=== PATIENT | female | born 1935 | race Hispanic/Latino ===

== ENCOUNTER 2017-06-27 13:57 | Outpatient (CLI) | payer MEDICARE, OTHER ==
--- NOTE | 2017-06-27 15:44 | Ultrasound Report ---
BILATERAL DIGITAL DIAGNOSTIC MAMMOGRAM with CAD and LEFT BREAST ULTRASOUND: 06/27/17 CLINICAL: Recent left pleural effusion and abnormal chest CT. COMPARISON:05/01/15 FINDINGS: The breasts are heterogeneously dense, which may obscure small masses.No mass, architectural distortion or suspicious calcifications.. Ultrasound of the left breast (including all four quadrants and the retroareolar area) was performed and demonstrated no mass or shadowing. A benign cyst at 7 o'clock near the areola measures 5 x 3 x 1 mm. A benign cyst at 12 o'clock measures 3 mm. Ultrasound of the left axilla demonstrated an abnormal lymph node measuring 4.0 x 3.2 x 1.4 cm. It has no central fat and more than one half of the lymph node has abnormal architecture. IMPRESSION: A suspicious 4 cm left axillary lymph node but no suspicious finding in the left breast. BI-RADS CATEGORY: 4--Suspicious RECOMMENDATION: Ultrasound guided needle biopsy of the left axillary lymph node. I discussed the findings and the recommendation for needle biopsy of the left axillary lymph node with the patient at the time of the examination. ACR BI-RADS MAMMOGRAPHIC CODES: 0 = Needs additional imaging evaluation; 1 = Negative; 2 = Benign; 3 = Probably benign; 4 = Suspicious; 5 = Malignant; 6 = Known biopsy-proven malignancy COMMENT: 1. Dense breast tissue, i.e., adenosis, fibrocystic changes, etc., may obscure an underlying neoplasm. 2. Approximately 10% of cancers are not detected with mammography. 3. A negative mammography report should not delay biopsy if a clinically suspicious mass is present. COMMENT: Patient follow-up letters are generated by our [employer] application.
== END 2017-06-27 13:58 | disposition home or self-care (01) ==
LOC: SPVWC 13:57
PROVIDERS: ATTEND Family Medicine
DX: N63.20 Unspecified lump in the left breast, unspecified quadrant (principal); R92.8 Other abnormal and inconclusive findings on diagnostic imaging of breast
CPT/HCPCS: 77066

== ENCOUNTER 2017-07-04 09:39 | Outpatient (CLI) | payer MEDICARE, OTHER ==
--- NOTE | 2017-07-04 13:47 | Ultrasound Report ---
ULTRASOUND GUIDED NEEDLE CORE BIOPSY OF A LEFT AXILLARY LYMPH NODE WITH CLIP PLACEMENT : 07/04/17 09:39:00 CLINICAL: A single enlarged left axillary lymph node and history of recent left pleural effusion. COMPARISON :06/27/17 FINDINGS: The procedure was explained to the patient and informed consent was obtained. Ultrasound demonstrated the suspicious lymph node. The skin in the axilla was prepped with Betadine and anesthetized with 1% lidocaine. Ultrasound guided needle core biopsy of the enlarged lymph node was performed through a small dermatotomy using 2% lidocaine with epinephrine for deep anesthesia and a 18-gauge Achieve biopsy device. Two cores were obtained and placed in cell medium for flow cytometric analysis and two cores were placed in formalin for histologic analysis. A clip was deployed within the lymph node. Hemostasis was achieved with minimal pressure and a sterile dressing was applied. The patient tolerated the procedure well and there were no apparent complications. She was discharged in good condition and was given instructions for wound care and followup. IMPRESSION: Uncomplicated ultrasound-guided needle core biopsy of a left axillary lymph node with clip placement.
== END 2017-07-04 09:40 | disposition home or self-care (01) ==
LOC: SPVWC 09:39
PROVIDERS: ATTEND Family Medicine
DX: R59.9 Enlarged lymph nodes, unspecified (principal)
CPT/HCPCS: 38505; 88305; 88312

== ENCOUNTER 2018-08-17 08:44 | Outpatient (CLI) | payer MEDICARE ==
--- NOTE | 2018-08-17 11:07 | Mammography Report ---
BILATERAL DIGITAL SCREENING MAMMOGRAM with CAD: 08/17/18 08:44:00 CLINICAL: Routine screening. COMPARISON:06/27/17 and 05/01/15 FINDINGS: The breasts are heterogeneously dense, which may obscure small masses. A left inner asymmetry on the CC view requires additional imaging.No architectural distortion or suspicious calcifications.The right breast is negative. IMPRESSION: Left asymmetry requiring further workup. BI-RADS CATEGORY: 0 -- Additional Imaging Evaluation Required RECOMMENDATION: Recall for left lateralmedial and spot compression CC views and left breast ultrasound if needed. ACR BI-RADS MAMMOGRAPHIC CODES: 0 = Needs additional imaging evaluation; 1 = Negative; 2 = Benign; 3 = Probably benign; 4 = Suspicious; 5 = Malignant; 6 = Known biopsy-proven malignancy COMMENT: 1. Dense breast tissue, i.e., adenosis, fibrocystic changes, etc., may obscure an underlying neoplasm. 2. Approximately 10% of cancers are not detected with mammography. 3. A negative mammography report should not delay biopsy if a clinically suspicious mass is present. COMMENT: Patient follow-up letters are generated via our [employer] application.
== END 2018-08-17 08:45 | disposition home or self-care (01) ==
LOC: SPVWC 08:44
PROVIDERS: ATTEND Family Medicine
DX: Z12.31 Encounter for screening mammogram for malignant neoplasm of breast (principal)
CPT/HCPCS: 77067

== ENCOUNTER 2018-09-01 09:48 | Outpatient (CLI) | payer MEDICARE ==
--- NOTE | 2018-09-01 11:33 | Mammography Report ---
LEFT DIGITAL DIAGNOSTIC MAMMOGRAM and LEFT BREAST ULTRASOUND: 09/01/18 09:48:00 CLINICAL: Recalled for asymmetry. COMPARISON:08/17/18 screening FINDINGS: An irregular inner asymmetry persists on the spot magnification CC view. It is not identified on the lateral view. Ultrasound of the left breast (including all four quadrants and the retroareolar area) was performed. An irregular solid heterogeneous hypoechoic superficial mass is identified at 9 o'clock 6 cm from the nipple. It measures 5 x 3 x 5 mm and correlates with the mammographic density. It has central blood flow by color Doppler and demonstrates mild shadowing. No other mass of the left breast. Ultrasound of the left axilla demonstrated several enlarged lymph nodes with abnormal morphology as seen on prior imaging. The largest measures 2.1 x 1.6 x 1.2 cm. She had a left axillary lymph node biopsy on 07/04/17 and the pathology revealed benign granulomatous inflammation suggestive of sarcoidosis. IMPRESSION: 1. A suspicious 5 mm solid left breast mass at 9 o'clock 6 cm from the nipple. Recommend ultrasound-guided needle biopsy.2. Left axillary lymphadenopathy which has been proven to be benign by needle biopsy. BI-RADS CATEGORY: 4--Suspicious I discussed the findings and the recommendation for ultrasound guided needle core biopsy of the left breast with the patient at the time of the examination. COMMENT: 1. Dense breast tissue, i.e., adenosis, fibrocystic changes, etc., may obscure an underlying neoplasm. 2. Approximately 10% of cancers are not detected with mammography. 3. A negative mammography report should not delay biopsy if a clinically suspicious mass is present. COMMENT: Patient follow-up letters are generated via our [employer] application.
== END 2018-09-01 09:49 | disposition home or self-care (01) ==
LOC: SPVWC 09:48
PROVIDERS: ATTEND Family Medicine
DX: R59.1 Generalized enlarged lymph nodes (principal)

== ENCOUNTER 2019-12-21 09:40 | Outpatient (CLI) | payer MEDICARE ==
--- NOTE | 2019-12-21 13:03 | Mammography Report ---
STEREOTACTIC NEEDLE BIOPSY WITH CLIP PLACEMENT RIGHT BREAST INDICATION: Right lower outer breast calcifications. COMPARISON: 11/29/2019, 11/04/2019. FINDINGS: The patient was placed prone on the stereotactic biopsy table. A timeout was called and the skin was cleansed with betadine. Using stereotactic guidance, sterile technique and 1% lidocaine for skin anesthesia and 2% lidocaine with epinephrine for deep anesthesia, 8-gauge Mammotome vacuum-assisted biopsy was performed from a l ateral approach. Samples were obtained around the clock face and maintenance representative calcifications were i dentified on a specimen radiograph. A localizer clip was placed at the biopsy site and the probe was removed. Hemostasis was achieved with pressure to the site and a sterile dressing was applied. A post procedure image demonstrated removal of at least some of the calcifications and concordant loc ation of the biopsy clip. The patient tolerated the procedure well and there were no apparent complic ations. She left the department in good condition with a cold pack applied to the biopsy site and she was given instructions for wound care and follow-up. IMPRESSION: Technically successful stereotactic biopsy of right lower outer breast calcifications. An addendum will be added to this report at a later date with pathology results. Signer Name: Marcus Sims MD Signed: 12/21/2019 12:59 PM Workstation Name: [id number]
--- NOTE | 2019-12-21 13:05 | Mammography Report ---
RIGHT DIAGNOSTIC MAMMOGRAM INDICATION: Status post right breast stereotactic biopsy COMPARISON: 11/29/2019, 11/04/2019. FINDINGS: Right CC and ML mammograms were obtained. These document location of the biopsy marker with in the right lower outer breast at site of previously noted calcifications. The calcifications are de creased in number. IMPRESSION: Post procedure mammogram documenting accurate location of biopsy marker within the right lower outer breast at site of recent stereotactic biopsy. Follow up recommendations: No recall. A "normal" or negative report should not discourage follow up or biopsy of a clinically significant f inding. A written summary of these findings will be mailed to the patient. FURTHER INFORMATION: According to the [employer], yearly mammograms are recommend ed starting at age 40 and continuing as long as a woman is in good health. Breast MRI is recommended for women with an approximately 20-25% or greater lifetime risk of breast cancer, including women wi th a strong family history of breast or ovarian cancer and women who have been treated for Hodgkin's disease. Signer Name: Marcus Sims MD Signed: 12/21/2019 1:01 PM Workstation Name: [id number]
== END 2019-12-21 09:41 | disposition home or self-care (01) ==
LOC: SPVWC 09:40
PROVIDERS: ATTEND Family Medicine
DX: R92.1 Mammographic calcification found on diagnostic imaging of breast (principal); D05.11 Intraductal carcinoma in situ of right breast; R92.0 Mammographic microcalcification found on diagnostic imaging of breast; Z17.0 Estrogen receptor positive status [ER+]
CPT/HCPCS: 19081; 77065; 88305; A4648

== ENCOUNTER 2020-02-07 06:08 | Day surgery (SDC) | payer MEDICARE ==
[~2020-02-07 06:08] MED LIST: ACETAMINOPHEN 500 MG TAB PO SCH; LACTATED RINGERS 1,000 ML IV SCH; MIDAZOLAM 2 MG/2 ML INJ IV NR; ceFAZolin/Water 2 GM/20 ML 2 GM/20 ML SYRINGE IV NR
[2020-02-07] MEDS ORDERED: BACTERIOSTATIC SODIUM CHLORIDE 0.9% 30 ML VIAL INFILTRATI ONE (06:28)
[2020-02-07] MEDS ORDERED: fentaNYL 100 MCG/2 ML INJ IV PRN (07:39)
--- NOTE | 2020-02-07 07:39 | Anesthesia Day of Surgery ---
Anesthesia Day of Surgery - Day of Surgery Patient Examined: Yes Patient H&P Reviewed: Yes Patient is NPO: Yes
--- NOTE | 2020-02-07 07:39 | Anesthesia Consultation ---
Anesthesia Consult and Med Hx Date of service: 02/07/20 - Airway Anesthetic Teeth Evaluation: Good ROM Head & Neck: Inadequate (restricted extension) Mental/Hyoid Distance: Adequate Mallampati Class: Class III Intubation Access Assessment: Possibly Difficult - Pulmonary Exam CTA: Yes - Cardiac Exam Cardiac Exam: RRR - Pre-Operative Health Status ASA Pre-Surgery Classification: ASA3 Proposed Anesthetic Plan: General Nerve Block: PECs - Pulmonary Hx Smoking: No Hx Respiratory Symptoms: No Hx Sleep Apnea: No - Cardiovascular System Hx Hypertension: No Hx Heart Attack/AMI: No Hx Percutaneous Transluminal Coronary Angioplasty (PTCA): No Hx Cardia Arrhythmia: No - Central Nervous System CVA: No - Endocrine Hx Renal Disease: No Hx Liver Disease: No Hx Insulin Dependent Diabetes: No Hx Non-Insulin Dependent Diabetes: No Hx Thyroid Disease: No - Other Systems Hx Cancer: Yes (breast ca) Hx Obesity: No - Additional Comments Anesthesia Medical History Comments: No hx anesthetic complications. Off ASA x1wk.
[2020-02-07] MEDS ORDERED: LIDOCAINE (1%) 10 MG/1 ML VIAL 20 ML MDV ONE (07:42)
[2020-02-07] MEDS ORDERED: METHYLENE BLUE 50 MG/10 ML AMP ONE (07:45)
[2020-02-07] MEDS ORDERED: SODIUM CHLORIDE P/F VIAL 10 ML 10 ML ONE (07:45)
[2020-02-07] MEDS ORDERED: LIDOCAINE MPF (2%) 20 MG/1 ML VIAL 5 ML ONE (07:54)
[2020-02-07] MEDS ORDERED: fentaNYL 100 MCG/2 ML INJ ONE (07:54)
[2020-02-07] MEDS ORDERED: ROCURONIUM 50 MG/5 ML INJ IV ONE (07:54)
[2020-02-07] MEDS ORDERED: ONDANSETRON 4 MG/2 ML INJ ONE (07:54)
[2020-02-07] MEDS ORDERED: propofoL 200 MG/20 ML VIAL IV ONE (07:54)
[2020-02-07] MEDS ORDERED: dexAMETHasone 4 MG/ML VIAL ONE (08:06)
[2020-02-07] MEDS ORDERED: BUPIVACAINE-EPINEPHRINE/PF 0.5%-1:200,000 (30 ML) VIAL INFILTRATI ONE (08:06)
[2020-02-07] MEDS ORDERED: METHYLENE BLUE 50 MG/10 ML AMP IRRIGATION ONE (10:09)
[2020-02-07] MEDS ORDERED: WATER FOR IRRIG STERILE 1,500 ML BOTTLE IR ONE (10:10)
[2020-02-07] MEDS ORDERED: SODIUM CHLORIDE 0.9% P/F 10 ML VIAL INFILTRATI ONE (10:10)
[2020-02-07] MEDS ORDERED: GLYCOPYRROLATE 0.4 MG/2 ML INJ ONE (10:59)
[2020-02-07] MEDS ORDERED: NEOSTIGMINE 10MG/10 ML INJ MDV ONE (10:59)
--- NOTE | 2020-02-07 11:11 | Operative Report ---
Operative Report Operative Report: Operative Report: February 07, 2020 Preoperative diagnosis: Right breast cancer of the central breast Postoperative diagnosis: Same Procedure: Right needle localization partial mastectomy of the central breast and SLNB Surgeon: Gabby Spicer MD Bilingual Case Manager: Renzo Guillory MD Anesthesia: General Findings: Right wire and clip present within radiograph specimen; x2 SLN Complications: None EBL: Minimal Disposition: PACU in good condition Indications for operative procedure: This is a 84 year old lady with newly diagnosed right breast cancer of central breast, Stage [id number] ER/OK positive. Recommendations are to proceed with breast conservation. Radiology place wire at area of known cancer. She understands the role of adjuvant radiation therapy and she has met with radiation oncology medical oncology. She wished to proceed with the above procedure. Procedure in detail: The patient was taken to radiology for wire placement for localization known area of cancer. Anesthesia placed right pectoral block. Patient was then taken to the operating room. Gen. anesthesia was administered. The right nipple was injected with radioisotope and 1 cc methylene blue dye. Right breast and axilla were prepped and draped in the normal sterile operative fashion. The wire was identified. Timeout was performed. Gamma probe was inserted into the axilla. The area of hot spot was identified. A right axillary incision was made with a 15 blade knife with dissection taken down to the subcutaneous tissues. The axillary fascia was opened with the Bovie cautery. 2 SLNs were identified. All remaining counts were less than 10% of the highest count. Lymph node was sent to pathology for permanent processing. Hemostasis was obtained in the right axillary cavity. Axillary cavity was appropriately irrigated and suctioned. Hemostasis was noted. Axillary fascia was approximated and closed using interrupted 3-0 Vicryl and the skin brought together and closed using a running 4-0 Monocryl followed by skin affix. Attention was then taken towards the right breast. Lateral breast incision around 7:00 position was made with a 15 blade knife and dissection taken down to subcutaneous tissues. First began raising of the superior flap with removal of the wire from the skin with dissection taken superiorly past the wire and then posteriorly down to the pectoralis muscle, followed by raising of the inferior flap, medial flap and lateral flap with all flaps taken past the wire and posteriorly down to the pectoralis muscle. The breast area of concern was appropriately removed posteriorly from the pectoralis muscle with the aid of the Bovie cautery. The wire was not encountered. Specimen was marked and then sent to pathology and radiology; radiograph specimen with wire, calcifications and clip present. Breast cavity was irrigated and hemostasis was obtained. The posterior deep breast tissues were approximated and closed using interrupted 3-0 Vicryl. The subcutaneous tissues were approximated and closed using interrupted 3-0 Vicryl followed by closing of the skin with a running 4-0 Monocryl and skin affix. The patient tolerated surgery very well and she was awaken from anesthesia without any complication and transported to PACU in good condition.
--- NOTE | 2020-02-07 11:16 | Short Stay Summary ---
Short Stay Documentation Date of service: 02/07/20 - History H&P: obtained from office - Allergies and Medications Current Medications: Allergies No Known Allergies Allergy (Unverified 01/31/20 13:04) Home Medications Medication Instructions Recorded Confirmed Last Taken Type Aspirin 325 mg PO DAILY 01/31/20 02/07/20 1 Week Ago History ~01/31/20 oxyCODONE /ACETAMINOPHEN [Percocet 1 tab PO Q6HR PRN #15 tablet 02/07/20 Unknown Rx 5/325] Active Medications Acetaminophen (Tylenol) 1,000 mg PO PREOP NIRALI Last Admin: 02/07/20 06:35 Dose: 1,000 mg Documented by: Fentanyl (Sublimaze) 50 mcg IV Q5MIN PRN PRN Reason: Pain , Severe (7-10) Stop: 02/07/20 23:00 Cefazolin Sodium (Ancef/Sterile Water 2 Gm/20 Ml) 2 gm in 20 mls @ 80 mls/hr IV PREOP NR; Protocol Stop: 02/07/20 23:59 Lactated Ringer's (Lactated Ringers) 1,000 mls @ 100 mls/hr IV DIRECT NIRALI Stop: 02/07/20 23:59 Last Admin: 02/07/20 08:30 Dose: 100 mls/hr Documented by: Midazolam HCl (Versed) 2 mg IV PREOP NR Stop: 02/07/20 23:59 Last Admin: 02/07/20 08:37 Dose: 2 mg Documented by: - Brief post op/procedure progress note Date of procedure: 02/07/20 Pre-op diagnosis: Right breast cancer central breast Post-op diagnosis: same Procedure: Right partial mastectomy with SLNB Anesthesia: GETA Findings: Right breast clip and x2 SLNs Surgeon: TIFFANY GREER Estimated blood loss: minimal Pathology: list (right partial mastectomy and x2 slns) Condition: stable - Disposition Condition at discharge: Good Disposition: DC-01 TO HOME OR SELFCARE Short Stay Discharge Plan Activity: other (no heavy lifting) Diet: regular Wound: keep clean and dry (wear breast binder; may shower in 48 hours; no baths or pools; do not rub or scrub incision) Follow up with: TIFFANY GREER MD [Staff Physician] - 7 Days Prescriptions: oxyCODONE /ACETAMINOPHEN [Percocet 5/325] 1 tab PO Q6HR PRN #15 tablet PRN Reason: Pain
[2020-02-07 13:46] VITALS: BP 126/88
--- NOTE | 2020-02-09 14:52 | Mammography Report ---
RIGHT BREAST NEEDLE LOCALIZATION USING X-RAY GUIDANCE The procedure was explained to the patient and informed consent obtained. PROCEDURE: Using 3 mL of 1% buffered lidocaine, a 25 gauge needle and x-ray guidance, the right christelle st was localized with standard needle/wire technique. There were no immediate complications. INTERPRETATION: 2 images made during the procedure demonstrate the needle to be properly positioned. IMPRESSION: Right breast lesion localization as described above. Thank you for allowing us to participate in the care of your patient. Signer Name: Cedric Smith Jr, MD Signed: 02/09/2020 2:18 PM Workstation Name: [id number]
--- NOTE | 2020-02-09 14:52 | Mammography Report ---
MAMMOGRAPHY SURGICAL SPECIMEN HISTORY: Right breast lesion, ductal carcinoma in situ FINDINGS: 2 mammographic images are presented demonstrating the localization wire, stereotactic biops y clip as well as adjacent pleomorphic calcifications. Please correlate with the final pathology eval uation. Signer Name: Cedric Smith Jr, MD Signed: 02/09/2020 2:20 PM Workstation Name: [id number]
== END 2020-02-07 06:09 | disposition home or self-care (01) ==
LOC: OR 06:08
PROVIDERS: ATTEND Surgery
DX: C50.111 Malignant neoplasm of central portion of right female breast (principal); Z20.828 Contact with and (suspected) exposure to other viral communicable diseases; I89.8 Other specified noninfective disorders of lymphatic vessels and lymph nodes; Z79.899 Other long term (current) drug therapy; Z79.82 Long term (current) use of aspirin; Z90.49 Acquired absence of other specified parts of digestive tract; Z90.710 Acquired absence of both cervix and uterus; Z87.442 Personal history of urinary calculi; Z96.642 Presence of left artificial hip joint; Z98.890 Other specified postprocedural states
CPT/HCPCS: 19281; 19301; 38525; 38792; 76098; 78800; 88307; 88333; A9541; J0690; J1100; J2250; J2405; J2704; J2710; J3010; J7120; Q9968; U0003; 64450

== ENCOUNTER 2020-08-29 07:56 | Outpatient (CLI) | payer MEDICARE ==
--- NOTE | 2020-08-29 08:49 | Mammography Report ---
BILATERAL DIAGNOSTIC MAMMOGRAM INDICATION: Status post right breast surgical excision, patient due for annual bilateral mammogram. COMPARISON: 12/21/2019, 12/07/2019, 11/04/2019, 08/17/2018, 06/27/2017. FINDINGS: Breasts demonstrate heterogeneously dense fibroglandular tissue which decreases the sensiti vity of mammography. New area of postsurgical change within the right slightly lateral breast is note d at site of interval lumpectomy. No residual suspicious calcifications are identified. This will ser ve as a new baseline appearance for the right breast. Biopsy marker in the left lower inner breast is again noted. No suspicious findings within either breast. CAD was utilized. IMPRESSION: No evidence of breast malignancy. A routine screening mammogram due in one year is recommended. BI-RADS Category 2: Benign. Recommend routine screening mammography in one year A "normal" or negative report should not discourage follow up or biopsy of a clinically significant f inding. A written summary of these findings will be mailed to the patient. FURTHER INFORMATION: According to the [employer], yearly mammograms are recommend ed starting at age 40 and continuing as long as a woman is in good health. Breast MRI is recommended for women with an approximately 20-25% or greater lifetime risk of breast cancer, including women wi th a strong family history of breast or ovarian cancer and women who have been treated for Hodgkin's disease. Signer Name: Marcus Sims MD Signed: 08/29/2020 8:45 AM Workstation Name: [id number]
== END 2020-08-29 07:57 | disposition home or self-care (01) ==
LOC: SPVWC 07:56
PROVIDERS: ATTEND Surgery
DX: R92.8 Other abnormal and inconclusive findings on diagnostic imaging of breast (principal); Z85.3 Personal history of malignant neoplasm of breast
CPT/HCPCS: 77066

== ENCOUNTER 2021-01-18 08:31 | Outpatient (CLI) | payer MEDICARE ==
--- NOTE | 2021-01-18 18:33 | Mammography Report ---
DIGITAL DIAGNOSTIC MAMMOGRAM WITH CAD , 01/18/2021 CLINICAL INFORMATION / INDICATION: SP/OP/BREAST CA/C50.919 TECHNIQUE: Digital bilateral mammographic imaging was performed. This examination was interpreted with the benefit of Computer-aided Detection analysis. COMPARISON: 08/29/2020, 11/04/2019 FINDINGS: Breast Density: The breasts are heterogeneously dense, which may obscure small masses. No dominant mass, suspicious calcifications or architectural distortion in either breast. Postlumpectomy and radiation changes again noted in the right breast. Biopsy clip is noted in the low er inner quadrant of the left breast. Overall, no significant interval change. IMPRESSION: No mammographic evidence of malignancy. Follow up recommendation: Routine yearly BI-RADS Category 2: Benign. A "normal" or negative report should not discourage follow up or biopsy of a clinically significant f inding. A written summary of these findings will be mailed to the patient. The patient will be entered into a mammography reporting system which will generate a reminder letter for the patient's next appointmen t at the appropriate interval. According to the [employer], yearly mammograms are recommended starting at age 40 and continuing as long as a woman is in good health. Breast MRI is recommended for women with an rehan roximately 20-25% or greater lifetime risk of breast cancer, including women with a strong family his tory of breast or ovarian cancer and women who have been treated for Hodgkin's disease. Signer Name: Anay Byrd MD Signed: 01/18/2021 6:29 PM Workstation Name: [id number]
== END 2021-01-18 08:32 | disposition home or self-care (01) ==
LOC: SPVWC 08:31
PROVIDERS: ATTEND Internal Medicine Hematology
DX: C50.919 Malignant neoplasm of unspecified site of unspecified female breast (principal); N64.89 Other specified disorders of breast; R92.2 Inconclusive mammogram
CPT/HCPCS: 77066